=== PATIENT | female | born 1990 ===

== ENCOUNTER 2022-11-09 06:00 | Day surgery (SDC) | payer OTHER ==
[~2022-11-09] VITALS: Ht 160 cm; Wt 83.9 kg
[~2022-11-09 06:00] MED LIST: FUSION PLUS CA1 EACH PO; HYDRODIURIL12.5 MG PO; LOSARTAN POTASS25 MG PO
[2022-11-09] MEDS ORDERED: IBU600 MG PO (08:45)
== END 2022-11-09 11:00 | disposition home or self-care (01) ==
LOC: CIR.AMB 06:00
PROVIDERS: ATTEND Obstetrics & Gynecology Gynecology
DX: N85.00 Endometrial hyperplasia, unspecified (principal); N93.9 Abnormal uterine and vaginal bleeding, unspecified; Z20.822 Contact with and (suspected) exposure to COVID-19; I10 Essential (primary) hypertension